=== PATIENT | female | born 1970 | race Caucasian/White ===

== ENCOUNTER → 2022-01-13 | Outpatient (CLI) | payer SELFPAY ==
--- NOTE | 2022-01-13 11:10 | EMB_PTH ---
PATIENT: WILLIS AVILES LOC: [facility] U#:[id number] AGE/SX: 51/F ROOM: RE01/13/[address]: Dr. Jose Rafael Blanton MD : [id number] BED: DIS: 01/13/2022 SPEC #: [id number] RECD: 01/13/22 12:57 STATUS: [place] REOswald #: [id number] MARINO: 01/13/22 11:[address]: Jose Rafael Blanton DEPT: SURGICAL PATHOLOGY RECD BY: Ellie Villegas Tissues: Endometrium, NOS Procedures: Surgery Specimen Level IV HEADER OPERATION: Endometrial biopsy PRE-OP DIAGNOSIS: Abnormal uterine bleeding TISSUE SUBMITTED: Endometrial biopsy MICROSCOPIC DIAGNOSIS Endometrial biopsy: Secretory endometrium. SASKIA:martine 01/14/2022 MICROSCOPIC DESCRIPTION Slides are reviewed. GROSS DESCRIPTION Received is one container labeled with the patient's name and not further designated. The specimen consists of multiple irregular fragments of pink, hemorrhagic soft tissue that in aggregate measure 3 x 2.5 x 0.2 cm. The specimen is totally submitted in one cassette. / SJ:rg 01/13/2022 TC:4 CPT: 19417
== END | disposition home or self-care (01) ==
LOC: LABSPEC 11:39
PROVIDERS: Visit Provider Obstetrics & Gynecology
DX: N93.9 Abnormal uterine and vaginal bleeding, unspecified (principal)
CPT/HCPCS: 88305